=== PATIENT | female | born 1960 | race American Indian/Alaskan Native ===

== ENCOUNTER 2017-10-18 08:26 | Emergency (ER) | payer SELFPAY ==
[2017-10-18 08:33] VITALS: BP 165/88
[2017-10-18] MEDS ORDERED: TORADOL IM ONE (09:15)
[2017-10-18] MEDS ORDERED: DECADRON IM STA (09:15)
--- NOTE | 2017-10-18 09:15 | Emergency Department Report ---
ED Back Pain/Injury HPI - General Chief Complaint: Extremity Injury, Lower Stated Complaint: LEG/FOOT PAIN Time Seen by Provider: 10/18/17 09:14 Source: patient Limitations: No Limitations - History of Present Illness Initial Comments: This is a 57-year-old female here complaining of right upper thigh and hip pain radiating down to her foot and occasional back pain on both sides of her back and is been going on for 2 weeks. She states that she has been lifting heavy stuff and might have moved the wrong way. Denies any fall or direct trauma. Pain is 10/10 to her right lower extremity and a can. Pain is worse with movement and better with rest. Patient says she has an appointment with her primary care in a couple days but she just could not wait because the pain is excruciating. She has a history of GERD, asthma and hypertension. Over-the- counter pain medication did not help. Denies any urinary burning, frequency or urgency. Denies any nausea or vomiting. Denies any abdominal pain. Denies any loss of bowel or bladder function. MD Complaint: back pain, other (right hip pain) Onset/Timin -: week(s) Similar Symptoms Previously: Yes Place: home Radiation: buttocks, right leg Severity: severe Severity scale (0 -10): 10 Quality: aching Consistency: intermittent Improves With: none Worsens With: movement, walking Context: unknown Associated Symptoms: denies: confusion, weakness, chest pain, numbness, difficulty walking, cough, difficulty urinating, diaphoresis, incontinence, fever/chills, constipation, headaches, abdominal pain, loss of appetite, malaise , nausea/vomiting, rash, seizure, shortness of breath, syncope - Related Data Home Medications Medication Instructions Recorded Confirmed Last Taken Albuterol Sulfate [Ventolin HFA] 2 puff IH Q4H PRN 06/22/15 06/22/15 Unknown Diltiazem HCl [Cardizem Cd] 360 mg PO DAILY 06/22/15 06/22/15 Unknown Loratadine [Claritin] 10 mg PO DAILY 06/22/15 06/22/15 Unknown Losartan/Hydrochlorothiazide 1 tab PO QDAY 06/22/15 06/22/15 Unknown [Hyzaar 100-25 TAB] Triamcinolone Acetonide [Nasacort 1 dose INHALATION PRN 06/22/15 06/22/15 Unknown SPRAY] Previous Rx's Medication Instructions Recorded Last Taken Type traMADol [Ultram 50 MG tab] 50 mg PO Q6HR PRN #20 tablet 10/18/17 Unknown Rx Allergies Allergy/AdvReac Type Severity Reaction Status Date / Time Sulfa (Sulfonamide Allergy Anaphylaxis Verified 10/18/17 08:31 Antibiotics) sulfamethoxazole Allergy Anaphylaxis Verified 10/18/17 08:31 [From Bactrim] trimethoprim [From Bactrim] Allergy Anaphylaxis Verified 10/18/17 08:31 ED Review of Systems ROS: Stated complaint: LEG/FOOT PAIN Other details as noted in HPI Constitutional: denies: chills, fever Eyes: denies: eye pain, eye discharge ENT: denies: ear pain, throat pain Respiratory: denies: cough, shortness of breath, SOB with exertion, SOB at rest , wheezing Cardiovascular: denies: chest pain, palpitations, edema, syncope Gastrointestinal: denies: abdominal pain, nausea, vomiting, diarrhea, constipation Genitourinary: denies: urgency, dysuria, frequency, hematuria, discharge Musculoskeletal: back pain, arthralgia. denies: joint swelling, myalgia Skin: denies: rash, lesions Neurological: denies: headache, weakness, numbness, paresthesias, confusion, abnormal gait, vertigo ED Past Medical Hx - Past Medical History Previous Medical History?: Yes Hx Hypertension: Yes Hx GERD: Yes Hx Asthma: Yes - Surgical History Past Surgical History?: Yes Additional Surgical History: C/S, tubal ligation - Family History Family history: hypertension - Social History Smoking Status: Never Smoker Substance Use Type: None - Medications Home Medications: Home Medications Medication Instructions Recorded Confirmed Last Taken Type Albuterol Sulfate [Ventolin HFA] 2 puff IH Q4H PRN 06/22/15 06/22/15 Unknown History Diltiazem HCl [Cardizem Cd] 360 mg PO DAILY 06/22/15 06/22/15 Unknown History Loratadine [Claritin] 10 mg PO DAILY 06/22/15 06/22/15 Unknown History Losartan/Hydrochlorothiazide 1 tab PO QDAY 06/22/15 06/22/15 Unknown History [Hyzaar 100-25 TAB] Triamcinolone Acetonide [Nasacort 1 dose INHALATION PRN 06/22/15 06/22/15 Unknown History SPRAY] traMADol [Ultram 50 MG tab] 50 mg PO Q6HR PRN #20 tablet 10/18/17 Unknown Rx ED Physical Exam - General Limitations: No Limitations General appearance: alert, in no apparent distress - Head Head exam: Present: atraumatic, normocephalic, normal inspection - Eye Eye exam: Present: normal appearance, PERRL, EOMI. Absent: nystagmus, periorbital swelling, periorbital tenderness Pupils: Present: normal accommodation - ENT ENT exam: Present: normal exam, normal orophraynx, mucous membranes moist - Neck Neck exam: Present: normal inspection, full ROM, other (no C-spine tenderness). Absent: tenderness, lymphadenopathy - Respiratory Respiratory exam: Present: normal lung sounds bilaterally. Absent: respiratory distress, chest wall tenderness - Cardiovascular Cardiovascular Exam: Present: regular rate, normal rhythm, normal heart sounds. Absent: systolic murmur, diastolic murmur - GI/Abdominal GI/Abdominal exam: Present: soft, normal bowel sounds. Absent: distended, tenderness, guarding, rebound, rigid, organomegaly, mass - Extremities Exam Extremities exam: Present: normal inspection, full ROM, normal capillary refill , other (No cce. + 2 pulses in all extremities, no neurovascular compromise). Absent: tenderness, pedal edema, joint swelling, calf tenderness - Back Exam Back exam: Present: normal inspection, full ROM, other (ambulates without any difficulties). Absent: tenderness, CVA tenderness (R), CVA tenderness (L), muscle spasm, paraspinal tenderness, vertebral tenderness, rash noted - Expanded Back Exam Expanded Back exam: Absent: saddle anesthesia Back exam: Negative Straight Leg Raising: Left, Right - Neurological Exam Neurological exam: Present: alert, oriented X3, normal gait, reflexes normal. Absent: motor sensory deficit - Expanded Neurological Exam Expanded Neurological exam: Absent: innattentive, memory loss-remote event, memory loss- recent event, ataxia, receptive aphasia, expressive aphasia, total aphasia, tremor, protecting the airway Patient oriented to: Present: person, place, time Speech: Present: fluid speech Cranial nerves: EOM's Intact: Normal, Gag Reflex: Normal, Tongue Deviation: Normal, Nystagmus: Normal, Facial Sensation: Normal Cerebellar function: Romberg: Normal Upper motor neuron: Pronator Drift: Normal, Sensory Extinction: Normal Sensory exam: Upper Extremity Light Touch: Normal, Upper Extremity Temperature: Normal, UE 2 Point Discrimination: Normal, Lower Extremity Light Touch: Normal, Lower Extremity Temperature: Normal, LE 2 Point Discrimination: Normal Motor strength exam: RUE: 5, LUE: 5, RLE: 5, LLE: 5 Best Eye Response ([place]): (4) open spontaneously Best Motor Response ([place]): (6) obeys commands Best Verbal Response ([place]): (5) oriented [place] Total: 15 - Psychiatric Psychiatric exam: Present: normal affect, normal mood - Skin Skin exam: Present: warm, dry, intact, normal color. Absent: rash ED Course Vital Signs 10/18/17 08:31 Temperature 98.5 F Pulse Rate 88 Respiratory 18 Rate Blood Pressure 165/88 O2 Sat by Pulse 99 Oximetry - Reevaluation(s) Reevaluation #1: 10/18/17 10:35 Patient given Decadron 10 mg IM and Toradol 60 mg IM in the emergency room for lower back and right lower extremity pain with positive relief. ED Medical Decision Making - Radiology Data Radiology results: report reviewed X-ray of lumbar spine without contrast and right hip dictated by radiologist and report reviewed by myself. Please see reports below. Patient: TAMICA BUTLER MR#: [id number] : 1960 Acct:[id number] Age/Sex: 57 / F ADM Date: 10/18/17 Loc: ED Attending Dr: Ordering Physician: ASHWINI MANZANO Date of Service: 10/18/17 Procedure(s): XR spine lumbosacral 2-3V Accession Number(s): [id number] cc: ASHWINI MANZANO Fluoro Time In Minutes: LUMBOSACRAL SPINE, 3 VIEWS: History: Back pain with radiculopathy Findings: No comparison. There is normal bone mineralization. No evidence for compression deformity or bone lesion. 6 mm anterolisthesis of L4 with respect to L5 is noted on the lateral image. This appears to be secondary to degenerative facet arthropathy. No pars defect is identified. The remaining lumbar vertebra are in normal alignment. The disc spaces appear within normal limits. There is moderate diffuse facet arthropathy which is most pronounced at L4-5. Impression: Lumbar spondylosis as described. No evidence for acute injury. Transcribed By: TTR Dictated By: CHRIS AQUINO JR, MD Electronically Authenticated By: CHRIS AQUINO JR, MD Signed Date/Time: 10/18/17949 DD/ 7 TD/TT: 10/18/17949 Patient: TAMICA BUTLER MR#: [id number] : 1960 Acct:[id number] Age/Sex: 57 / F ADM Date: 10/18/17 Loc: ED Attending Dr: Ordering Physician: ASHWINI MANZANO Date of Service: 10/18/17 Procedure(s): XR spine lumbosacral 2-3V Accession Number(s): [id number] cc: ASHWINI MANZANO Fluoro Time In Minutes: LUMBOSACRAL SPINE, 3 VIEWS: History: Back pain with radiculopathy Findings: No comparison. There is normal bone mineralization. No evidence for compression deformity or bone lesion. 6 mm anterolisthesis of L4 with respect to L5 is noted on the lateral image. This appears to be secondary to degenerative facet arthropathy. No pars defect is identified. The remaining lumbar vertebra are in normal alignment. The disc spaces appear within normal limits. There is moderate diffuse facet arthropathy which is most pronounced at L4-5. Impression: Lumbar spondylosis as described. No evidence for acute injury. Transcribed By: TTR Dictated By: CHRIS AQUINO JR, MD Electronically Authenticated By: CHRIS AQUINO JR, MD Signed Date/Time: 10/18/17949 DD/ 7 TD/TT: 10/18/17949 - Medical Decision Making This is a 57-year-old patient with 2 week history of lower back pain and right lower extremity pain. She is here to be evaluated. Visual was seen and examined by myself and her physical exam is normal. Back, lower extremities and neurological exam is intact. Patient has x-ray of lumbar spine and x-ray of right hip which shows no acute findings the patient has degenerative disc disease in her lumbar spine area which is causing her to have remained right lower extremity radiculopathy. Straight was dictated by radiologist and report reviewed by myself. I discussed x-ray findings with patient and she voiced understanding. I also told her that she needs to mention to her primary care when she goes for a visit in the couple days that she was diagnosed with degenerative this disease in her spine and possibly need MRI for further evaluation. Patient was understanding. She received Decadron 10 mg and Toradol 60 mg IM which helped her pain. Patient vital signs stable she is afebrile and she is discharged home with prescription for Ultram and Motrin. I also gave her referral to orthopedic doctor for follow-up. - Differential Diagnosis FX, dislocation, subluxation, sprain, musculoskeletal pain Critical care attestation.: If time is entered above; I have spent that time in minutes in the direct care of this critically ill patient, excluding procedure time. ED Disposition Clinical Impression: Lumbar radiculopathy, acute, Arthralgia of right lower leg, Degenerative disc disease, lumbar Back pain Qualifiers: Back pain location: low back pain Chronicity: acute Back pain laterality: bilateral Sciatica presence: with sciatica Sciatica laterality: sciatica of right side Qualified Code(s): M54.41 - Lumbago with sciatica, right side Disposition: - TO HOME OR SELFCARE Is pt being admited?: No Does the pt Need Aspirin: No Condition: Stable Instructions: Arthralgia (ED), Lumbar Radiculopathy (ED), Back Pain (ED), Osteoarthritis (ED), Degenerative Disc Disease (ED) Additional Instructions: Please take tramadol for pain. Do not drive or operate heavy machinery while taking this medication as it causes drowsiness Follow-up with orthopedic doctor in 2 days Follow-up with her primary care doctor in 2 days Referrals: ALANNAH CH MD [Primary Care Provider] - 10/20/17 PAM RUFFIN MD [Staff Physician] - 10/20/17 Forms: Work/School Release Form(ED)
--- NOTE | 2017-10-18 09:49 | XRay Report ---
RIGHT HIP, 2 views: History: Right hip pain. The bony architecture is intact without evidence of fracture or dislocation. No significant soft tissue abnormality is seen. IMPRESSION: Right hip within normal limits.
--- NOTE | 2017-10-18 09:50 | XRay Report ---
LUMBOSACRAL SPINE, 3 VIEWS: History: Back pain with radiculopathy Findings: No comparison. There is normal bone mineralization. No evidence for compression deformity or bone lesion. 6 mm anterolisthesis of L4 with respect to L5 is noted on the lateral image. This appears to be secondary to degenerative facet arthropathy. No pars defect is identified. The remaining lumbar vertebra are in normal alignment. The disc spaces appear within normal limits. There is moderate diffuse facet arthropathy which is most pronounced at L4-5. Impression: Lumbar spondylosis as described. No evidence for acute injury.
== END 2017-10-18 10:57 | disposition home or self-care (01) ==
LOC: ED 08:26
DX: M54.41 Lumbago with sciatica, right side (principal); M54.16 Radiculopathy, lumbar region; M51.36 Other intervertebral disc degeneration, lumbar region; I10 Essential (primary) hypertension; K21.9 Gastro-esophageal reflux disease without esophagitis; J45.909 Unspecified asthma, uncomplicated; Z98.51 Tubal ligation status; Z88.2 Allergy status to sulfonamides
CPT/HCPCS: 72100; 73502; 96372; 99283; J1100; J1885